=== PATIENT | male | born 1965 | race Hispanic/Latino ===

== ENCOUNTER 2022-08-20 17:37 | Inpatient (IN) | payer SELFPAY ==
[~2022-08-20 17:37] MED LIST: Iopamidol 370 76% 100 ML VIAL ONE
[2022-08-20 18:30] LABS: #Monocytes 0.8 10x3/uL (0.0-1.1); #Neutrophils 7.4 10x3/uL (1.5-8.4); %Basophils 0.4 % (0.0-2.0); %Eosinophils 0.4 % (0.0-6.0); %Lymphocytes 13.5 % (18.0-47.0); %Monocytes 8.7 % (0.0-10.0); %Neutrophils 76.8 % (40.0-75.0); Hemoglobin 16.4 g/dL (13.5-17.5); Mean Corpuscular HGB CONC 34.8 g/dL (32.0-36.0); Mean Corpuscular Hemoglobin 31.1 pg (27.0-33.0); Mean Corpuscular Volume 89.4 fl (81.2-95.1); Mean Platelet Volume 10.6 fl (7.4-10.4); Platelet Count 205 10x3/uL (150-450); RBC Distribution Width 12.6 % (11.5-14.5); Red Blood Cell (RBC) Count 5.27 10x6/uL (4.32-5.72); White Blood Cell (WBC) Count 9.6 10x3/uL (3.5-10.5)
[2022-08-20 18:42] LABS: ALT (SGPT) 72 U/L (8-55); AST (SGOT) 60 U/L (5-34); Albumin 4.4 g/dL (3.5-5.0); Alkaline Phosphatase 105 U/L (40-110); Anion Gap 12 mmol/L (10-20); BUN (Urea Nitrogen) 13 mg/dL (8.4-25.7); Bilirubin, Total 1.2 mg/dL (0.2-1.2); Calc. Creatinine Clearance 0 mL/min (70-130); Calcium 9.4 mg/dL (7.8-10.44); Carbon Dioxide 25 mmol/L (22-29); Chloride 104 mmol/L (98-107); Estimated GFR 96; Globulin 3.2 g/dL (2.4-3.5); Glucose 194 mg/dL (70-105); Lipase 7 U/L (8-78); Potassium 4.3 mmol/L (3.5-5.1); Protein, Total 7.6 g/dL (6.0-8.3); Sodium 137 mmol/L (136-145)
[2022-08-20 19:02] LABS: CKMB 2.9 ng/mL (0-6.6)
[2022-08-20] MEDS ORDERED: Acetaminophen 325 MG TAB PO PRN (20:57)
[2022-08-20] MEDS ORDERED: Senokot S 8.6-50 MG TAB PO PRN (20:57)
[2022-08-20] MEDS ORDERED: Dextrose 50% Abboject 50 ML SYRINGE SLOW IVP PRN (20:57)
[2022-08-20] MEDS ORDERED: Dextrose 5% in Water 1,000 ML IV PRN (20:57)
[2022-08-20] MEDS ORDERED: Calcium Carbonate 500 MG ChewTAB PO PRN (20:57)
[2022-08-20] MEDS ORDERED: Guaifenesin DM 100-10/5 ML UDCUP PO PRN (20:57)
[2022-08-20] MEDS ORDERED: Lantus 1000 UNITS/10 ML VIAL SC SCH (22:30)
[2022-08-20] MEDS ORDERED: Metoprolol Tartrate 25 MG TAB PO SCH (22:30)
[2022-08-20] MEDS ORDERED: Furosemide 20 MG/2 ML VIAL SLOW IVP SCH (22:30)
[2022-08-20] MEDS ORDERED: Azithromycin 250 MG TAB PO SCH (22:30)
[2022-08-20 23:18] LABS: CKMB 2.5 ng/mL (0-6.6)
[2022-08-21 00:30] LABS: Legionella Urinary Ag Negative (Negative); Strep pneumo Urine Ag NEGATIVE (NEGATIVE)
[2022-08-21] MEDS ORDERED: Metoprolol Tartrate 5 MG/5 ML VIAL IVP SCH (01:30)
[2022-08-21 05:47] LABS: ALT (SGPT) 50 U/L (8-55); AST (SGOT) 28 U/L (5-34); Albumin 3.9 g/dL (3.5-5.0); Alkaline Phosphatase 93 U/L (40-110); Anion Gap 13 mmol/L (10-20); BUN (Urea Nitrogen) 16 mg/dL (8.4-25.7); Calc. Creatinine Clearance 86 mL/min (70-130); Calcium 9.1 mg/dL (7.8-10.44); Carbon Dioxide 23 mmol/L (22-29); Cardiac Risk 2.4 (Less than 4.5); Chloride 106 mmol/L (98-107); Cholesterol 114 mg/dl (< 200 Desired); Estimated GFR 96; Globulin 2.9 g/dL (2.4-3.5); Glucose 274 mg/dL (70-105); HDL Cholesterol 47 mg/dL (>60 Neg Risk); LDL Cholesterol, Calculated 55 mg/dL; Magnesium 1.8 mg/dL (1.6-2.6); Potassium 3.9 mmol/L (3.5-5.1); Protein, Total 6.8 g/dL (6.0-8.3); Sodium 138 mmol/L (136-145); Triglycerides 58 mg/dL (Less than 150)
[2022-08-21 06:01] LABS: CKMB 1.9 ng/mL (0-6.6)
[2022-08-21] MEDS: HumaLOG 300 UNITS/3 ML VIAL SC PRN ×3 (06:31→18:13)
[2022-08-21] MEDS ORDERED: Lisinopril 2.5 MG TAB PO SCH (09:00)
[2022-08-21] MEDS ORDERED: Aspirin 81 mg Enteric Coated Tablet PO SCH (09:00)
[2022-08-21] MEDS ORDERED: FLU VACC QS2022-23(6MOS UP)/PF 60 MCG/0.5 ML SYRINGE IM ONE (09:00)
[2022-08-21] MEDS ORDERED: Metoprolol Tartrate 50 MG TAB PO SCH (09:00)
[2022-08-21] MEDS ORDERED: Metoprolol Tartrate 25 MG TAB PO SCH (09:00)
[2022-08-21] MEDS ORDERED: Enoxaparin Sodium 40 MG/0.4 ML SYRINGE SC SCH (09:00)
[2022-08-21] MEDS ORDERED: Ivabradine 5 MG TAB PO SCH ×2 (10:15→21:00)
[2022-08-21] MEDS ORDERED: Furosemide 40 MG TAB PO SCH (10:45)
[2022-08-21] MEDS ORDERED: Communication Order-Pharmacy FS SCH (11:15)
[2022-08-21] MEDS ORDERED: Carvedilol 3.125 MG TAB PO SCH (17:00)
[2022-08-21 18:51] LABS: Magnesium 1.7 mg/dL (1.6-2.6)
[2022-08-21] MEDS: Lantus 1000 UNITS/10 ML VIAL SC SCH ×2 (21:45→21:47)
[2022-08-22 04:15] LABS: #Eosinphils 0.2 10x3/uL (0.0-0.5); #Monocytes 0.9 10x3/uL (0.0-1.1); #Neutrophils 4.8 10x3/uL (1.5-8.4); %Basophils 0.5 % (0.0-2.0); %Eosinophils 2.3 % (0.0-6.0); %Lymphocytes 23.5 % (18.0-47.0); %Monocytes 11.2 % (0.0-10.0); %Neutrophils 62.4 % (40.0-75.0); Hemoglobin 16.6 g/dL (13.5-17.5); Mean Corpuscular HGB CONC 34.7 g/dL (32.0-36.0); Mean Corpuscular Volume 89.3 fl (81.2-95.1); Mean Platelet Volume 10.8 fl (7.4-10.4); Platelet Count 221 10x3/uL (150-450); RBC Distribution Width 12.6 % (11.5-14.5); Red Blood Cell (RBC) Count 5.35 10x6/uL (4.32-5.72); White Blood Cell (WBC) Count 7.7 10x3/uL (3.5-10.5)
[2022-08-22 04:22] LABS: PTT 28.2 sec (22.0-33.0); Prothrombin Time 11.3 sec (9.5-12.1)
[2022-08-22 04:28] LABS: ALT (SGPT) 43 U/L (8-55); AST (SGOT) 20 U/L (5-34); Alkaline Phosphatase 79 U/L (40-110); Anion Gap 14 mmol/L (10-20); BUN (Urea Nitrogen) 23 mg/dL (8.4-25.7); Bilirubin, Total 1.1 mg/dL (0.2-1.2); Calc. Creatinine Clearance 83 mL/min (70-130); Calcium 9.4 mg/dL (7.8-10.44); Carbon Dioxide 22 mmol/L (22-29); Cardiac Risk 2.6 (Less than 4.5); Chloride 107 mmol/L (98-107); Cholesterol 120 mg/dl (< 200 Desired); Estimated GFR 96; Globulin 3.1 g/dL (2.4-3.5); Glucose 145 mg/dL (70-105); HDL Cholesterol 46 mg/dL (>60 Neg Risk); LDL Cholesterol, Calculated 64 mg/dL; Potassium 3.6 mmol/L (3.5-5.1); Protein, Total 7.1 g/dL (6.0-8.3); Sodium 139 mmol/L (136-145); Triglycerides 49 mg/dL (Less than 150)
[2022-08-22] MEDS ORDERED: Aspirin 81 mg Enteric Coated Tablet PO SCH (05:30)
[2022-08-22] MEDS ORDERED: Ivabradine 5 MG TAB PO SCH ×2 (05:30→09:00)
[2022-08-22] MEDS ORDERED: Valsartan 80 MG TAB PO SCH (05:30)
[2022-08-22] MEDS ORDERED: Potassium Chloride 20 MEQ TAB PO SCH (08:15)
[2022-08-22] MEDS ORDERED: Magnesium Sulfate 4 GM in Sodium Chloride 0.9% 250 ML 250 ML IVPB SCH (08:15)
[2022-08-22] MEDS: Furosemide 40 MG TAB PO SCH (08:22)
[2022-08-22] MEDS: Aspirin 81 mg Enteric Coated Tablet PO SCH (08:22)
[2022-08-22] MEDS: Valsartan 80 MG TAB PO SCH (08:34)
[2022-08-22] MEDS: Magnesium 2 GM/50 ML(in water) 2 GM in Premix Bag 1 BAG IVPB SCH ×2 (08:38→10:33)
[2022-08-22] MEDS: HumaLOG 300 UNITS/3 ML VIAL SC PRN (12:59)
[2022-08-22] MEDS ORDERED: Iopamidol 300 61% 100 ML VIAL FS ONE (13:44)
[2022-08-22] MEDS ORDERED: Nitroglycerin 50 MG/250 ML BOT 250 ML ONE (14:40)
[2022-08-22] MEDS ORDERED: Heparin 10,000 UNITS/ 10 ML VIAL ONE (14:40)
[2022-08-22] MEDS ORDERED: Verapamil 5 MG/2 ML VIAL ONE (14:41)
[2022-08-22] MEDS ORDERED: Adenosine 6 MG/2 ML VIAL ONE (14:41)
[2022-08-22] MEDS ORDERED: Bivalirudin 250 MG VIAL ONE (14:41)
[2022-08-22] MEDS ORDERED: Lidocaine 1% MPF 2 ML VIAL ONE (14:49)
[2022-08-22] MEDS ORDERED: Fentanyl 100 MCG/2 ML VIAL ONE (14:58)
[2022-08-22] MEDS ORDERED: Midazolam HCl 2 mg/2 ml Vial ONE (14:58)
[2022-08-22 15:02] LABS: Hemoglobin A1c 6.9 % (4.0-6.0)
[2022-08-22] MEDS ORDERED: Acetaminophen/Codeine 30-300mg Tablet PO PRN ×2 (16:07)
[2022-08-22] MEDS ORDERED: Nitroglycerin 0.4 MG TAB (25 Tab Bottle) SL PRN (16:07)
[2022-08-22] MEDS ORDERED: Sodium Chloride 0.9% 200 ML IV PRN (16:07)
[2022-08-22] MEDS: Ivabradine 5 MG TAB PO SCH (20:01)
[2022-08-22] MEDS: Lantus 1000 UNITS/10 ML VIAL SC SCH (22:32)
[2022-08-23] MEDS: Ivabradine 5 MG TAB PO SCH ×2 (08:31→20:35)
[2022-08-23] MEDS: Aspirin 81 mg Enteric Coated Tablet PO SCH (08:31)
[2022-08-23] MEDS: Furosemide 40 MG TAB PO SCH (08:31)
[2022-08-23] MEDS: Valsartan 80 MG TAB PO SCH (08:32)
[2022-08-23 09:11] LABS: Anion Gap 15 mmol/L (10-20); BUN (Urea Nitrogen) 27 mg/dL (8.4-25.7); Calc. Creatinine Clearance 68 mL/min (70-130); Calcium 9.2 mg/dL (7.8-10.44); Carbon Dioxide 22 mmol/L (22-29); Chloride 104 mmol/L (98-107); Estimated GFR 79; Glucose 156 mg/dL (70-105); Magnesium 1.9 mg/dL (1.6-2.6); Potassium 4.3 mmol/L (3.5-5.1); Sodium 137 mmol/L (136-145)
[2022-08-23] MEDS: HumaLOG 300 UNITS/3 ML VIAL SC PRN ×2 (11:12→18:03)
[2022-08-23] MEDS ORDERED: Ivabradine 5 MG TAB PO SCH (11:15)
[2022-08-23] MEDS ORDERED: Magnesium Oxide 400 MG TAB PO SCH (11:15)
[2022-08-23] MEDS ORDERED: Digoxin 0.125 MG TAB PO SCH (11:30)
[2022-08-23] MEDS: Lantus 1000 UNITS/10 ML VIAL SC SCH (20:35)
[2022-08-24 06:49] VITALS: BMI 22.9
[2022-08-24] MEDS: HumaLOG 300 UNITS/3 ML VIAL SC PRN ×2 (06:58→11:53)
[2022-08-24 07:49] VITALS: TEMP 97
[2022-08-24] MEDS: Valsartan 80 MG TAB PO SCH (08:18)
[2022-08-24] MEDS: Ivabradine 5 MG TAB PO SCH (08:18)
[2022-08-24] MEDS: Aspirin 81 mg Enteric Coated Tablet PO SCH (08:18)
[2022-08-24] MEDS ORDERED: Digoxin 0.125 MG TAB PO SCH (09:00)
[2022-08-24] MEDS ORDERED: Magnesium Oxide 400 MG TAB PO SCH (09:00)
[2022-08-24] MEDS ORDERED: glipiZIDE 5 MG TAB PO SCH (09:15)
[2022-08-24 12:00] VITALS: BP 93/68
[2022-08-24 12:30] LABS: Hep C IgG Ab Non-Reactive (NonReactive); Hep C Index 0.08 S/CO (0-0.79)
[2022-08-24] MEDS ORDERED: metFORMIN 500 MG TAB PO SCH (17:00)
[2022-08-24] MEDS ORDERED: Lantus 1000 UNITS/10 ML VIAL SC SCH (21:00)
[2022-08-25] MEDS ORDERED: glipiZIDE 5 MG TAB PO SCH (07:30)
== END 2022-08-24 18:24 | disposition home or self-care (01) | DRG 286 ==
LOC: CSHERS 17:37 → CSHTELE 22:17
PROVIDERS: ADMIT Student in an Organized Health Care Education/Training Program; ATTEND Family Medicine
PROC: 4A023N7 Measurement of Cardiac Sampling and Pressure, Left Heart, Percutaneous Approach (ICD-10-PCS; principal; 2022-08-22)
PROC: B2111ZZ Fluoroscopy of Multiple Coronary Arteries using Low Osmolar Contrast (ICD-10-PCS; 2022-08-22)
PROC: B2151ZZ Fluoroscopy of Left Heart using Low Osmolar Contrast (ICD-10-PCS; 2022-08-22)
DX: I11.0 Hypertensive heart disease with heart failure (principal); I50.23 Acute on chronic systolic (congestive) heart failure; R65.10 Systemic inflammatory response syndrome (SIRS) of non-infectious origin without acute organ dysfunction; I47.20 Ventricular tachycardia, unspecified; I42.0 Dilated cardiomyopathy; Z20.822 Contact with and (suspected) exposure to COVID-19; I25.5 Ischemic cardiomyopathy; R79.89 Other specified abnormal findings of blood chemistry; E11.9 Type 2 diabetes mellitus without complications; Z79.4 Long term (current) use of insulin; Z79.82 Long term (current) use of aspirin; Z79.84 Long term (current) use of oral hypoglycemic drugs; Z79.899 Other long term (current) drug therapy; Z87.891 Personal history of nicotine dependence
CPT/HCPCS: 36415; 36416; 71045; 71275; 80048; 80053; 80061; 82553; 83036; 83605; 83690; 83735; 83880; 84443; 84484; 85025; 85610; 85730; 86803; 87040; 87449; 87899; 93005; 93010; 93306; 93458; 94760; 97139; 99152; C1769; C1894; J0153; J0583; J1644; J1650; J1815; J1940; J2250; J3010; J3475; J7030; Q9967; U0003; U0005